=== PATIENT | male | born 1975 | race Caucasian/White ===

== ENCOUNTER 2016-11-27 15:07 | Emergency (ER) | payer OTHER, BC ==
[2016-11-27 15:28] VITALS: BP 119/79
--- NOTE | 2016-11-27 16:02 | UC ---
Ear Complaint HPI - HPI Summary HPI Summary: C/O loss of hearing left ear since yesterday. Ringing in the ear. - History of Current Complaint Chief Complaint: UCEar Stated Complaint: EAR COMPLAINT Time Seen by Provider: 11/27/16 15:54 Hx Obtained From: Patient Onset/Duration: Sudden Onset - yesterday afternoon, Still Present Severity Initially: Mild Severity Currently: Moderate Associated Signs/Symptoms: Positive: Hearing Loss, URI Symptoms. Negative: Trauma to Ear, Swelling @ Related History: Seasonal Allergies - Allergies/Home Medications Allergies/Adverse Reactions: Allergies Allergy/AdvReac Type Severity Reaction Status Date / Time ENVIRONMENTAL/SEASONAL Allergy SNEEZE, Uncoded 11/27/16 15:28 ITCHY WATERY EYES PMH/Surg Hx/FS Hx/Imm Hx Cancer History: Other Other Cancer History: non-hodgkins lymphoma - Surgical History Surgical History: Yes Surgery Procedure, Year, and Place: RT clavicle reduction, [facility] [place]. RT tibial surgery/RODDING SCREWS, [facility] 2008. mediport- REMOVED 2012. biopsies and exploratory surgerys PELVIS/STERNUM AND SPINAL TAP, [facility]. right bicep/ tendon surgery. TIBIAL BIOPSIES, [facility]. VASECTOMY, OFFICE. SETON TUBE PLACEMENT, [place]. RIGHT BICEP REPAIR 2016 - Family History Known Family History: Positive: Cardiac Disease, Hypertension Negative: Diabetes - Social History Occupation: Employed Full-time Lives: With Family Alcohol Use: None Substance Use Type: None Smoking Status (MU): Never Smoked Tobacco Have You Smoked in the Last Year: No - Immunization History Most Recent Influenza Vaccination: November 2014 Review of Systems Constitutional: Chills ENT: Nasal Discharge Is Patient Immunocompromised?: No All Other Systems Reviewed And Are Negative: Yes Physical Exam Triage Information Reviewed: Yes Appearance: Well-Appearing, No Pain Distress, Well-Nourished Vital Signs: Initial Vital Signs Temp 97.9 F 11/27/16 15:24 Pulse 80 11/27/16 15:24 Resp 16 11/27/16 15:24 BP 119/79 11/27/16 15:24 Pulse Ox 98 11/27/16 15:24 Vital Signs Reviewed: Yes ENT: Positive: Nasal congestion - with allergic changes, TMs normal Neck exam: Normal Respiratory Exam: Normal Cardiovascular Exam: Normal Musculoskeletal Exam: Normal Neurological Exam: Normal Psychological Exam: Normal Skin Exam: Normal Ear Complaint Course/Dx - Differential Dx/Diagnosis Differential Diagnosis/HQI/PQRI: Cerumen Impaction, Otitis Externa, Otitis Media Provider Diagnoses: Allergic rhinitis. Left eustachian tube dysfunction Discharge - Discharge Plan Condition: Stable Disposition: HOME Patient Education Materials: Allergic Rhinitis (ED) Additional Instructions: You have eustachian tube dysfunction which is causing the ear issues. NEILMED SINUS RINSE: CHECK OUT AT [facility] Saline nasal wash helps with mucous, allergies and congestion. It can be used up to twice a day or only as needed. Use lukewarm tap water. It does not have to be sterilized or distilled water. Do 1/3 on each side and snort out of both nostrils. Repeat the process with 1/6 of the bottle on each side with snorting in between to finish the solution in the bottle Do the rinse 30 minutes after Afrin and 45 minutes before cortisone nasal spray. Only use the afrin once a day for 3-4 days until you get the ear to "pop " easily. NASAL SPRAYS AND DROPS: Afrin in the PUMP/ MIST bottle. Tilt your head down and look at the floor while doing a strong sniff with the spray. Decongestant nasal sprays and drops often give dramatic relief from congestion. They are often recommended for patients with sinus infection to assist with sinus drainage. Persons with high blood pressure should consult the doctor before using these nasal sprays. Afrin and Emmett-Synephrine are common [id number] preparations. They should not be used for more than five days, as "rebound" congestion can occur - - the congestion flares as the drug wears off. A way of dealing with this rebound congestion problem is to medicate only one nostril each time, allowing the other nostril to recover from the medicine' s effects. When you no longer need the drug during the day, spray only one nostril each night. This helps you sleep well without severe rebound congestion. Call the doctor if you develop severe headache, palpitations, or chest pain.
== END 2016-11-27 16:15 | disposition home or self-care (01) ==
LOC: UCCORT 15:07
DX: J30.9 Allergic rhinitis, unspecified (principal); H69.92 Unspecified Eustachian tube disorder, left ear; Z85.72 Personal history of non-Hodgkin lymphomas
CPT/HCPCS: 99211; G0463

== ENCOUNTER 2017-04-28 13:29 | Emergency (ER) | payer OTHER, BC ==
[2017-04-28 15:03] VITALS: BP 148/71
--- NOTE | 2017-04-28 15:29 | UC ---
FLU HPI - HPI Summary HPI Summary: Pt c/o sudden onset of cough, chill, fever and generalized body aches X 1 day. - History of Current Complaint Chief Complaint: UCRespiratory Stated Complaint: FLU SYMPTOMS Time Seen by Provider: 04/28/17 15:01 Hx Obtained From: Patient Onset/Duration: Sudden Onset, Lasting Days, Still Present Severity Currently: Moderate Severity Initially: Moderate Pain Intensity: 5 Associated Signs & Symptoms: Positive: Fever, Myalgia Related Hx: Possible Flu/Infectious Exposure - Risk Factors Influenza Risk Factors: Negative - Allergy/Home Medications Allergies/Adverse Reactions: Allergies Allergy/AdvReac Type Severity Reaction Status Date / Time ENVIRONMENTAL/SEASONAL Allergy SNEEZE, Uncoded 04/28/17 14:57 ITCHY WATERY EYES PMH/Surg Hx/FS Hx/Imm Hx Previously Healthy: Yes - Surgical History Surgical History: Yes Surgery Procedure, Year, and Place: [place] [facility] [place] surgery/RODDING SCREWS, [facility] 2008. mediport- REMOVED 2012. biopsies and exploratory surgerys PELVIS/STERNUM AND SPINAL TAP, [facility]. right bicep/ tendon surgery. TIBIAL BIOPSIES, [facility]. VASECTOMY, OFFICE. SETON TUBE PLACEMENT, [place]. RIGHT BICEP REPAIR 2016 - Family History Known Family History: Positive: Cardiac Disease, Hypertension Negative: Diabetes - Social History Occupation: Employed Full-time Lives: With Family Alcohol Use: Rare Substance Use Type: None Smoking Status (MU): Never Smoked Tobacco Have You Smoked in the Last Year: No - Immunization History Most Recent Influenza Vaccination: November 2014 Review of Systems Constitutional: Fever, Chills, Fatigue Skin: Negative Eyes: Negative ENT: Negative Respiratory: Cough Cardiovascular: Negative Gastrointestinal: Negative Genitourinary: Negative Motor: Negative Neurovascular: Negative Musculoskeletal: Myalgia Neurological: Negative Psychological: Negative Is Patient Immunocompromised?: No All Other Systems Reviewed And Are Negative: Yes Physical Exam Triage Information Reviewed: Yes Appearance: Ill-Appearing Vital Signs: Initial Vital Signs Temp 99.7 F 04/28/17 14:57 Pulse 106 04/28/17 14:57 Resp 16 04/28/17 14:57 BP 148/71 04/28/17 14:57 Pulse Ox 97 04/28/17 14:57 Vital Signs Reviewed: Yes Eye Exam: Normal ENT Exam: Other ENT: Positive: Nasal congestion Dental Exam: Normal Neck exam: Normal Respiratory Exam: Normal Cardiovascular Exam: Normal Musculoskeletal Exam: Normal Neurological Exam: Normal Psychological Exam: Normal Skin Exam: Normal Diagnostics - Laboratory Diagnostic Studies Completed/Ordered: Rapid flu: positive Flu B Flu Course/Dx - Differential Dx/Diagnosis Differential Diagnosis/HQI/PQRI: Bronchitis, Influenza, Upper Respiratory Infection Provider Diagnoses: Influenza B Discharge - Discharge Plan Condition: Stable Disposition: HOME Prescriptions: Benzonatate CAP* [Tessalon 100 MG CAP*] 100 mg PO Q8H PRN #30 cap PRN Reason: Cough Oseltamivir CAP* [Tamiflu CAP*] 75 mg PO Q12H #10 cap Patient Education Materials: Influenza (ED) Forms: *Work Release Referrals: Minh Caraballo MD [Primary Care Provider] -
== END 2017-04-28 15:40 | disposition home or self-care (01) ==
LOC: UCCORT 13:29
DX: J10.1 Influenza due to other identified influenza virus with other respiratory manifestations (principal)
CPT/HCPCS: 87502; 99212; G0463

== ENCOUNTER 2018-03-31 14:37 | Emergency (ER) | payer OTHER, BC ==
--- OUTSIDE RECORDS SUMMARY | 2018-03-31 16:07 | XMS REPORT | Continuity of Care Document ---
:1975 External Reference #:[id number] Author Name Edith Bhatti, SYSTEMS SPEC Address [address] [facility] [place] [address] Care Team Providers Name Role Phone Minh Caraballo MD Care Team Information Research/Program Director Unavailable Minh Caraballo MD Primary Care Physician Unavailable Payers Type Date Identification Numbers Payment Provider Subscriber Effective: Policy Number: [id number] [facility] Shoaib Castillo 2012 Group Number: [id number] [id number] Group Name: CONSUELO Briones [id number] PayID: [id number] Effective: 2011 Policy Number: [id number] / Of [place] Aye Gandhi PayID: [id number] [address] [address] [place] [address] Advance Directives Description No Information Available Problems Description No Information Family History Description No Information Available Social History Type Date Description Comments Sex Unknown Tobacco Use Start: Unknown Nonsmoker Tobacco Use Start: Unknown nonsmoker Allergies, Adverse Reactions, Alerts Date Description Reaction Status Severity Comments 05/03/2011 NKDA Active 05/23/2000 Nka Inactive Medications Medication Date Status Form Strength Qnty SIG Indications Ordering Provider Benzonatate 03/21 Active Capsules 200mg 30caps take one J11.89 Edith Holland. /2019 by mouth Davy, 3 times SYSTEM[employer] SPE[employer] daily as needed for cough Acetaminophen-C 03/21 Active Tablets 300-30mg 20tabs take one J11.89 Edith C. odeine # by mouth Davy, every 6 SYSTEM[employer] hours as needed for cough. may take 2 as one dose at bedtime. Guaifenesin/Pse 03/21 Active Tablets 60-600mg 30tabs take one J11.89 Edith HollandRolando udoephedrine /2018 ER 12HR by mouth Davy, Hydrochloride twice SYSTEM[employer] daily as needed for head congesti on Hydrocodone-Mj 06/29 Active Tablets 5-325mg 42tabs 1 by M54.5 Eden taminophen /2017 mouth Jaspreet, every SHOE PACKER 4-6h as needed pain Flonase 11/29 Active Suspensio 50mcg/Act 1units 2 sprays Minh Khan /2016 n in each Breiman, nostril M.D. daily Zyrtec 11/27 Active Tablets 10mg 1 PO qd /2007 [facility] Atorvastatin 05/06 Active Tablets 10mg 90tabs Take 1 Minh Khan Calcium Tablet Breiman, By Mouth M.D. AT Bedtime Methylprednisol 06/29 Hx TBPK 4mg 21units take as M54.5 Eden directed Jaspreet, - SHOE PACKER 03/21 Orphenadrine 06/29 Hx Tablets 100mg 30tabs 1 po bid M54.5 Eden Citrate ER /2017 ER 12HR prn for Jaspreet, - spasm SHOE PACKER 03/21 Paxil 01/05 Hx Tablets 10mg 30tabs 1 by Minh Khan /2015 mouth Breiman, - every M.D. Guaifenesin-Cod 08/16 Hx Solution 100-10mg/ 4Oz use 1-2 Claudia betzaida /2015 5ML teaspoon [facility], - every 4 Afnp-C / hour needed for cough Ambien CR 01/09 Hx Tablets 6.25mg 30tabs Minh Khan ER Breiman, - M.D. 08/16 Levaquin 10/30 Hx Tablets 500mg 10tabs 1 po qd 786.2 Eden /2014 for 10 Jaspreet, - days SHOE PACKER 01/09 Tussionex 10/30 Hx Liquid ER 10-8mg/5M 120cc 1 786.2 Eden Pennkinetic /2014 L teaspoon Jaspreet, Extended - every 12 SHOE PACKER Release 01/09 hours needed cough Cephalexin 03/19 Hx Tablets 500mg 21tabs 1 by 782.1 mouth Darrius SYSTEM[employer] SPE[employer] - three 03/26 times a day x 7 days Lotrisone 03/19 Hx Cream 1-0.05% 45gm apply to 782.1 affected PREETI Rizo - area 03/26 twice day x 7 days Flonase 03/12 Hx Suspensio 50mcg/Act 1units 2 sprays n in each [facility] 10/28 daily Of Levaquin 01/02 Hx Tablets 500mg 10tabs 1 po qd Bharat Vitale for 10 M.D. - days 03/11 Amoxicillin/Pot 12/27 Hx Tablets 875-125mg 20tabs 1 po bid 461.9 Eden assium x 10 Jaspreet, Clavulanate - days SHOE PACKER 03/11 Tessalon Perles 12/27 Hx Capsules 100mg 60caps 1 po q 8 461.9 hours Jaspreet, - SHOE PACKER 03/11 Robitussin ac 12/27 Hx 40Z 1-2 tsp 461.9 po q4hrs Jaspreet, - prn SHOE PACKER 03/11 Tramadol HCL 10/01 Hx Tablets 50mg 50tabs 1 or 2 724.2 po q 4 - PREETI Rizo - 6 hrs 03/11 prn Medrol Dosepak 10/01 Hx Tablets 4mg 1pack use as directed PREETI Rizo - 10/13 Orphenadrine 09/26 Hx Tablets 100mg 30tabs 1 po bid 724.2 Debra Citrate ER /2012 ER 12HR prn for PREETI Rizo - spasm 03/11 Hydrocodone/Mj 09/26 Hx Tablets 5-325mg 50tabs 1 po 4-6 724.2 Debra taminophen /2012 hr prn PREETI Rizo - for 10/01 severe pain Amoxicillin/Pot 03/23 Hx Tablets 875-125mg 20tabs 1 po bid 461.9 Alejandrina assium x 10 Cherry, Clavulanate - days Afnp-C 09/26 Tamiflu 02/28 Hx Capsules 75mg 10caps 1 po bid Minh JRolando /2012 for 5 Colby CaraballoDRolando 03/22 Robitussin ac 08/10 Hx 40Z 1-2 tsp 466.0 Claudia po q4hrs Jono, - prn Afnp-C 08/24 Nasonex 08/10 Hx 50mcg 1units 2 sprays Alejandrina each Cherry - nostril Afnp-C 03/11 qd Ambien 05/07 Hx Tablets 5mg 30tabs 1 po qhs Minh J. prn Colby Caraballo sleep M.DRolando 08/10 Singulair 06/10 Hx Tablets 10mg 30tabs 1 po qd Minh J. Colby Caraballo M.D. 08/10 Tessalon Perles 02/02 Hx Capsules 100mg 60caps 1 po q 8 472.1 Roxane Stanton /2008 hours Colby Car M.D. 05/07 Levaquin 06/10 Hx Tablets 750mg 5tabs 1 qd x 465.9 Zeus Carmichael /2008 5d Montana Mc - 12/24 Medrol Dosepak 06/10 Hx Tablets 4mg 1tabs use as 465.9 Zeus Carmichael /2008 directed Montana Mc - 12/24 Tylenol 3 03/12 Hx 20units 1 q6h 729.5 Cody A. /2007 prn pain Colby Mckinley M.D. 03/17 disp twenty Nasonex 11/01 Hx 50mcg 1units 2 sprays Ramirez JRolando /2005 each Colby Montano nostril RomyDRolando 04/27 qd /2006 Tessalon 03/22 Hx Capsules 200mg 20caps 1 tid Ramirez JRolando /2005 prn Colby Montano Cough M.D. 04/21 Bextra 09/30 Hx 20mg 30units one po Cody A. daily as Colby Mckinley M.D. 10/30 Lamisil 09/11 Hx 250mg 1 PO qd [facility] 03/22 [facility] [place] Tequin 01/01 Hx 400mg 10units 1 PO qd Cody A. Arlen - M.D. 01/11 Tussi-12 01/01 Hx Liquid 100cc 1 tsp Cody A. q12h prn Dartierney, - cough M.D. 01/11 Clarinex 06/18 Hx 5mg 30units 1 qd prn Alejandrina Cherry, - Afnp-C 01/01 Tessalon Pearls 06/14 Hx 100mg 30units 1 PO tid Alejandrina prn Cherry, - Afnp-C 01/01 Robitussin ac 06/14 Hx 4Oz 1-2 TSP PO Q4H Cherry, - prn Afnp-C 06/24 Cough Claritin 09/06 Hx 10mg 30units 1 qd Omer F. Colby Richmond M.D. 06/18 [place] 08/01 Hx 180mg 30units 1 PO qd Minh J. /2001 Colby Caraballo M.D. 09/06 Viscous 05/28 Hx 2% 1Bottle Mix W/ Alejandrina Lidocaine Equl Cherry, - Amts Of Afnp-C 06/11 Liqid Benadryl And Maalox; Swish And Spit Q 4 HRS prn Doxycycline 12/25 Hx 100mg 20units 1 PO bid Sarthak Stanton /2000 Colby Dimas M.D. 01/04 Tessalon Pearls 12/25 Hx 100mg 30units One Q8H Sarthak Stanton prn Wing, - Celine M.D. 01/24 [place] 08/01 Hx 180mg 30units 1 PO qd Minh JRolando /2000 Colby Caraballo M.D. 05/28 Flonase 08/01 Hx Nasal Oneinhalr 2 Sprays Minh Khan /2000 Sray Each Colby Caraballo Nostril Lashay.DRolando 05/28 qd Dymista Hx Suspensio 137-50mcg 1 spray Unknown /0000 n /Act each - nostril 06/28 twice 2018 daily Immunizations CPT Code Status Date Vaccine Lot # [id number] Given 01/07/2017 Influenza Vac, Quadrivalent, [place] [id number] Given Unknown Tetanus And Diptheria Adult Preservative Free >7Yrs [address] Ordered 11/22/2007 DO Not Use Split Influenza Virus Vaccine Vital Signs Date Vital Result Comment 03/21/2018 9:08am BP Systolic 120 mmHg BP Diastolic 70 mmHg Heart Rate 86 /min Body Temperature 98.2 F Respiratory Rate 20 /min O2 % BldC Oximetry 96 % Ra Weight 211.00 lb 06/29/2017 1:30pm BP Systolic 122 mmHg BP Diastolic 84 mmHg Heart Rate 106 /min Body Temperature 98.4 F Height 69 inches 5'9" Weight 204.00 lb BMI (Body Mass Index) 30.1 kg/m2 05/19/2017 10:53am BP Systolic 132 mmHg BP Diastolic 102 mmHg Heart Rate 80 /min Body Temperature 97.7 F Height 69 inches 5'9" Weight 201.00 lb BMI (Body Mass Index) 29.7 kg/m2 Right Visual Acuity Distance 20/20 Left Visual Acuity Distance 20/25 01/06/2016 8:03am BP Systolic 122 mmHg BP Diastolic 74 mmHg Heart Rate 84 /min Body Temperature 98.1 F Respiratory Rate 18 /min Height 68 inches 5'8" Weight 207.00 lb BMI (Body Mass Index) 31.5 kg/m2 08/17/2015 10:49am BP Systolic 102 mmHg BP Diastolic 72 mmHg Heart Rate 100 /min Body Temperature 99.6 F Height 68 inches 5'8" Weight 200.50 lb BMI (Body Mass Index) 30.5 kg/m2 01/09/2015 4:02pm BP Systolic 118 mmHg BP Diastolic 80 mmHg Heart Rate 70 /min Body Temperature 97.6 F Respiratory Rate 18 /min Height 68 inches 5'8" Weight 198.00 lb BMI (Body Mass Index) 30.1 kg/m2 10/30/2014 3:49pm BP Systolic 140 mmHg BP Diastolic 80 mmHg Heart Rate 76 /min Body Temperature 101.1 F Respiratory Rate 20 /min Height 68.25 inches 5'8.25" 10/28/2014 11:42am BP Systolic 110 mmHg BP Diastolic 70 mmHg Heart Rate 92 /min Body Temperature 101.6 F Respiratory Rate 18 /min Height 68.25 inches 5'8.25" Weight 200.00 lb BMI (Body Mass Index) 30.2 kg/m2 03/19/2014 10:27am BP Systolic 110 mmHg BP Diastolic 78 mmHg Heart Rate 80 /min Body Temperature 97.8 F Respiratory Rate 16 /min Height 68.25 inches 5'8.25" Weight 205.25 lb BMI (Body Mass Index) 31.0 kg/m2 03/12/2013 11:10am BP Systolic 104 mmHg BP Diastolic 64 mmHg Heart Rate 84 /min Body Temperature 96.4 F Height 68.25 inches 5'8.25" Weight 205.25 lb BMI (Body Mass Index) 31.0 kg/m2 12/27/2012 11:50am BP Systolic 120 mmHg BP Diastolic 80 mmHg Heart Rate 60 /min Body Temperature 97.1 F Respiratory Rate 16 /min Height 68.25 inches 5'8.25" Weight 203.00 lb BMI (Body Mass Index) 30.6 kg/m2 10/01/2012 2:15pm BP Systolic 126 mmHg BP Diastolic 80 mmHg Heart Rate 120 /min Body Temperature 97.9 F Respiratory Rate 18 /min Height 68.25 inches 5'8.25" Weight 204.00 lb BMI (Body Mass Index) 30.8 kg/m2 09/26/2012 11:16am BP Systolic 122 mmHg BP Diastolic 80 mmHg Heart Rate 96 /min Body Temperature 96.3 F Respiratory Rate 16 /min Height 68.25 inches 5'8.25" Weight 204.00 lb BMI (Body Mass Index) 30.8 kg/m2 03/23/2012 3:46pm BP Systolic 110 mmHg BP Diastolic 68 mmHg Heart Rate 108 /min Body Temperature 96.7 F Height 68.25 inches 5'8.25" Weight 207.50 lb BMI (Body Mass Index) 31.3 kg/m2 05/03/2011 3:11pm BP Systolic 110 mmHg BP Diastolic 70 mmHg Heart Rate 72 /min Respiratory Rate 15 /min Height 68.25 inches 5'8.25" Weight 206.00 lb BMI (Body Mass Index) 31.1 kg/m2 08/10/2010 4:14pm BP Systolic 120 mmHg BP Diastolic 70 mmHg Heart Rate 76 /min Body Temperature 98.3 F Height 68.25 inches 5'8.25" Weight 200.00 lb BMI (Body Mass Index) 30.2 kg/m2 02/02/2009 4:03pm BP Systolic 120 mmHg BP Diastolic 70 mmHg Heart Rate 90 /min Body Temperature 98.3 F O2 % BldC Oximetry 98 % Height 68.25 inches 5'8.25" Weight 200.00 lb BMI (Body Mass Index) 30.2 kg/m2 12/24/2008 10:11am BP Systolic 102 mmHg BP Diastolic 68 mmHg Heart Rate 84 /min Body Temperature 97.3 F Respiratory Rate 16 /min Weight 204.00 lb 06/10/2008 4:06pm BP Systolic 138 mmHg BP Diastolic 78 mmHg Heart Rate 84 /min Body Temperature 97.6 F Weight 203.00 lb 03/26/2008 9:53am BP Systolic 104 mmHg BP Diastolic 82 mmHg Heart Rate 82 /min Weight 206.00 lb 11/28/2007 8:36am BP Systolic 110 mmHg BP Diastolic 80 mmHg Heart Rate 80 /min Height 68.25 inches 5'8.25" Weight 195.00 lb BMI (Body Mass Index) 29.4 kg/m2 03/15/2007 11:10am BP Systolic 122 mmHg BP Diastolic 72 mmHg Heart Rate 76 /min Body Temperature 98.3 F Height 68.25 inches 5'8.25" 03/12/2007 8:47am BP Systolic 102 mmHg BP Diastolic 70 mmHg Heart Rate 76 /min Body Temperature 97.8 F Respiratory Rate 14 /min Height 68.25 inches 5'8.25" Weight 205.00 lb BMI (Body Mass Index) 30.9 kg/m2 04/27/2006 10:53am BP Systolic 110 mmHg BP Diastolic 72 mmHg Body Temperature 76.0 F Height 68.25 inches 5'8.25" Weight 200.00 lb BMI (Body Mass Index) 30.2 kg/m2 Right Visual Acuity Distance 20/25 Left Visual Acuity Distance 20/20 03/15/2006 7:15pm BP Systolic 100 mmHg BP Diastolic 60 mmHg Body Temperature 98.8 F Respiratory Rate 15 /min Height 69 inches 5'9" 02/10/2006 1:21pm BP Systolic 112 mmHg BP Diastolic 80 mmHg Heart Rate 84 /min Body Temperature 97.9 F Height 69 inches 5'9" Weight 199.00 lb BMI (Body Mass Index) 29.4 kg/m2 11/22/2005 1:53pm BP Systolic 114 mmHg BP Diastolic 72 mmHg Heart Rate 84 /min Height 69 inches 5'9" Weight 199.00 lb BMI (Body Mass Index) 29.4 kg/m2 11/01/2005 1:51pm BP Systolic 102 mmHg BP Diastolic 60 mmHg Heart Rate 80 /min Body Temperature 98.0 F Height 69 inches 5'9" Weight 198.00 lb BMI (Body Mass Index) 29.2 kg/m2 03/22/2005 3:02pm BP Systolic 116 mmHg BP Diastolic 76 mmHg Body Temperature 97.0 F Height 69 inches 5'9" Weight 190.00 lb BMI (Body Mass Index) 28.1 kg/m2 10/01/2003 10:43am BP Systolic 102 mmHg BP Diastolic 80 mmHg Heart Rate 56 /min Irregular Height 69 inches 5'9" Weight 184.00 lb BMI (Body Mass Index) 27.2 kg/m2 09/12/2003 9:27am BP Systolic 102 mmHg BP Diastolic 76 mmHg Heart Rate 74 /min Height 69 inches 5'9" Weight 185.00 lb BMI (Body Mass Index) 27.3 kg/m2 08/12/2003 10:05am BP Systolic 118 mmHg BP Diastolic 78 mmHg Heart Rate 72 /min Height 69 inches 5'9" Weight 188.00 lb BMI (Body Mass Index) 27.8 kg/m2 01/01/2003 4:43pm BP Systolic 120 mmHg BP Diastolic 72 mmHg Heart Rate 68 /min Body Temperature 99.3 F Height 69 inches 5'9" Weight 189.00 lb BMI (Body Mass Index) 27.9 kg/m2 06/14/2002 9:33am BP Systolic 136 mmHg BP Diastolic 80 mmHg Heart Rate 80 /min Body Temperature 98.4 F Height 69 inches 5'9" Weight 193.00 lb BMI (Body Mass Index) 28.5 kg/m2 05/28/2001 10:47am BP Systolic 112 mmHg BP Diastolic 68 mmHg Body Temperature 97.8 F Height 69 inches 5'9" Weight 191.00 lb BMI (Body Mass Index) 28.2 kg/m2 01/31/2001 9:08am BP Systolic 110 mmHg BP Diastolic 80 mmHg Heart Rate 78 /min Height 69 inches 5'9" Weight 187.00 lb BMI (Body Mass Index) 27.6 kg/m2 12/25/2000 1:20pm BP Systolic 120 mmHg BP Diastolic 78 mmHg Heart Rate 60 /min Body Temperature 97.6 F Height 69 inches 5'9" Weight 181.00 lb BMI (Body Mass Index) 26.7 kg/m2 08/01/2000 4:22pm BP Systolic 107 mmHg BP Diastolic 74 mmHg Heart Rate 68 /min Height 69 inches 5'9" Weight 190.00 lb BMI (Body Mass Index) 28.1 kg/m2 05/23/2000 9:12am BP Systolic 118 mmHg BP Diastolic 68 mmHg Heart Rate 64 /min Height 69 inches 5'9" Weight 180.00 lb BMI (Body Mass Index) 26.6 kg/m2 Results Test Date Facility Test Result H/L Range Note Laboratory test 12/07/2017 [facility] PSA Diagnostic 0.379 ng/mL N 0-4.0 1 finding Comprehensive 05/09/2017 [facility] ([facility]) Sodium 139 mEq/L 134-149 Metabolic Prof Potassium 4.2 mEq/L 3.6-5.5 Chloride 99 mEq/L 94-112 Carbon Dioxide 24 mEq/L 21-32 Glucose 111 mg/dL High 70-105 BUN 12 mg/dL 6-26 Creatinine 0.9 mg/dL 0.6-1.4 BUN/Creat Ratio 13.3 CALC 8.0-36.0 Calcium 9.5 mg/dL 8.6-10.2 Total Protein 7.0 g/dL 6.4-8.3 Albumin 4.6 g/dL 3.8-5.5 Globulin 2.4 g/dL 2.0-4.8 A/G Ratio 1.9 CALC 0.6-2.3 Alk. Phosphatase 61 U/L 22-95 Alt (SGPT) 41 U/L High 7-35 Ast (Sgot) 22 U/L 5-34 Total Bilirubin 0.5 mg/dL 0.2-1.3 GFR Non- >60 ml/min/1.73m^ >=60 GFR >60 ml/min/1.73m^ >=60 Lipid Profile 05/09/2017 [facility] ([facility]) Cholesterol 151 mg/dL 120- 200 Triglycerides 108 mg/dL 30-200 HDL Cholesterol 38 mg/dL 30-70 LDL (Calculated) 91 CALC 0-129 VLDL Cholesterol 22 mg/dL 0-50 HDL Risk Factor 4.0 CALC 0.0-4.4 CBC Electronic [facility] 05/09/2017 [facility] ([facility]) WBC 5.5 x10^3/UL 4.0- 10.0 RBC 4.50 x10^6/UL 3.93-6.00 HGB 14.7 g/dL 12.0-17.0 HCT 42 % 35-50 MCV 93.3 fL 80.0-95.0 MCH 32.7 pg High 25.6-32.2 MCHC 35.0 g/dL 32.2-36.0 RDW-CV 12.1 % 11.6-14.4 PLT 194 x10^3/UL 163-400 MPV 10.2 fL 9.4-12.4 Mellissa# 2.84 x10^3/UL 1.56-6.13 Lymph# 1.77 x10^3/UL 1.18-3.74 [place]# 0.70 x10^3/UL 0.24-0.82 Eos # 0.2 x10^3/UL 0.0-0.5 Baso # 0.03 x10^3/UL 0.01-0.08 Mellissa% 51.8 % 34.0-70.0 Lymph % 32.2 % 20.0-52.0 [place]% 12.8 % High 5.0-12.0 Eos% 2.7 % 0.7-7.0 Baso% 0.5 % 0.1-1.2 Rapid Influenza A & B 04/28/2017 [facility] Influenza A Molecular NEGATIVE Negative 2 Molecular Influenza B Molecular POSITIVE Abnormal Negative Complete Blood Count 12/30/2015 [facility] Espinosa ([facility]) WBC 4.8 x10^3/UL 3.6-9.6 RBC 4.44 x10^6/UL 3.90-5.70 HGB 14.6 g/dL 12.1-17.2 HCT 42 % 36-50 MCV 95.0 fL 82.2-97.4 MCH 32.9 pg 27.6-33.3 MCHC 34.6 g/dL 33.0-35.5 RDW 13.5 % 11.6-13.7 PLT 171 x10^3/UL 150-400 MPV 6.7 fL Low 7.4-10.4 Gran # 2.8 x10^3/UL 1.5-7.2 Lymph# 1.7 x10^3/UL 0.7-4.9 [place]# 0.3 x10^3/UL 0.1-0.9 Gran % 56.4 % 42.2-75.2 Lymph % 36.7 % 20.5-51.1 [place]% 6.9 % 1.7-9.3 Comprehensive Metabolic 12/30/2015 [facility] Francisca ([facility]) Sodium 140 mEq/L 134-149 Prof Potassium 4.2 mEq/L 3.6-5.5 Chloride 100 mEq/L 94-112 Carbon Dioxide 23 mEq/L 21-32 Glucose 114 mg/dL High 70-105 3 BUN 13 mg/dL 6-26 Creatinine 0.9 mg/dL 0.6-1.4 BUN/Creat Ratio 14.4 CALC 8.0-36.0 Calcium 9.1 mg/dL 8.6-10.2 Total Protein 6.5 g/dL 6.4-8.3 Albumin 4.3 g/dL 3.8-5.5 Globulin 2.2 g/dL 2.0-4.8 A/G Ratio 2.0 CALC 0.6-2.3 Alk. Phosphatase 55 U/L 22-95 Alt (SGPT) 31 U/L 7-35 Ast (Sgot) 22 U/L 5-34 Total Bilirubin 0.5 mg/dL 0.2-1.3 GFR Non- >60 ml/min/1.73m^ >=60 GFR >60 ml/min/1.73m^ >=60 Lipid Profile 12/30/2015 Vikash Francisca (a) Cholesterol 160 mg/dL 120- 200 Triglycerides 114 mg/dL 30-200 HDL Cholesterol 41 mg/dL 30-70 LDL (Calculated) 96 CALC 0-129 VLDL Cholesterol 23 mg/dL 0-50 HDL Risk Factor 3.9 CALC 0.0-4.4 Comprehensive Metabolic 12/30/2014 [facility] Francisca ([facility]) Sodium 143 mEq/L 134-149 Prof Potassium 4.4 mEq/L 3.6-5.5 Chloride 104 mEq/L 94-112 Carbon Dioxide 21 mEq/L 21-32 Glucose 105 mg/dL 70-105 BUN 11 mg/dL 6-26 Creatinine 0.9 mg/dL 0.6-1.4 BUN/Creat Ratio 12.2 CALC 8.0-36.0 Calcium 9.8 mg/dL 8.6-10.2 Total Protein 7.0 g/dL 6.4-8.3 Albumin 4.5 g/dL 3.8-5.5 Globulin 2.5 g/dL 2.0-4.8 A/G Ratio 1.8 CALC 0.6-2.3 Alk. Phosphatase 57 U/L 22-95 Alt (SGPT) 38 U/L High 7-35 4 Ast (Sgot) 29 U/L 5-34 Total Bilirubin 0.5 mg/dL 0.2-1.3 GFR Non- >60 ml/min/1.73m^ >=60 GFR >60 ml/min/1.73m^ >=60 Lipid Profile 12/30/2014 Vikash Espinosa (a) Cholesterol 154 mg/dL 120- 200 Triglycerides 104 mg/dL 30-200 HDL Cholesterol 42 mg/dL 30-70 LDL (Calculated) 91 CALC 0-129 VLDL Cholesterol 21 mg/dL 0-50 HDL Risk Factor 3.7 CALC 0.0-4.4 Complete Blood Count 12/30/2014 Vikash Espinosa (a) WBC 4.9 x10^3/UL 3.6-9.6 RBC 4.48 x10^6/UL 3.90-5.70 HGB 14.6 g/dL 12.1-17.2 HCT 44 % 36-50 MCV 97.0 fL 82.2-97.4 MCH 32.7 pg 27.6-33.3 MCHC 33.6 g/dL 33.0-35.5 RDW 13.9 % High 11.6-13.7 PLT 172 x10^3/UL 150-400 MPV 7.6 fL 7.4-10.4 Gran # 2.8 x10^3/UL 1.5-7.2 Lymph# 1.8 x10^3/UL 0.7-4.9 [place]# 0.3 x10^3/UL 0.1-0.9 Gran % 54.6 % 42.2-75.2 Lymph % 37.9 % 20.5-51.1 [place]% 7.5 % 1.7-9.3 Laboratory test 10/28/2014 Vikash Espinosa (a) TSH 0.85 mIU/L 0.50- 6.00 finding Laboratory test 10/28/2014 [facility] Monospot NEGATIVE finding (607)- - ([facility]) Comprehensive 10/28/2014 Vikash Espinosa (a) Sodium 135 mEq/L 134-149 Metabolic Prof Potassium 3.7 mEq/L 3.6-5.5 Chloride 98 mEq/L 94-112 Carbon Dioxide 25 mEq/L 21-32 Glucose 120 mg/dL High 70-105 5 BUN 11 mg/dL 6-26 Creatinine 1.0 mg/dL 0.6-1.4 BUN/Creat Ratio 11.0 CALC 8.0-36.0 Calcium 9.1 mg/dL 8.6-10.2 Total Protein 7.5 g/dL 6.4-8.3 Albumin 4.6 g/dL 3.8-5.5 Globulin 2.9 g/dL 2.0-4.8 A/G Ratio 1.6 CALC 0.6-2.3 Alk. Phosphatase 66 U/L 22-95 Alt (SGPT) 21 U/L 7-35 Ast (Sgot) 20 U/L 5-34 Total Bilirubin 0.8 mg/dL 0.2-1.3 GFR Non- >60 ml/min/1.73m^ >=60 GFR >60 ml/min/1.73m^ >=60 Complete Blood Count 10/28/2014 [facility] ([facility]) WBC 7.7 x10^3/UL 3.6-9.6 RBC 4.48 x10^6/UL 3.90-5.70 HGB 14.9 g/dL 12.1-17.2 HCT 44 % 36-50 MCV 97.0 fL 82.2-97.4 MCH 33.3 pg 27.6-33.3 MCHC 34.1 g/dL 33.0-35.5 RDW 13.2 % 11.6-13.7 PLT 156 x10^3/UL 150-400 MPV 7.5 fL 7.4-10.4 Gran # 6.5 x10^3/UL 1.5-7.2 Lymph# 0.9 x10^3/UL 0.7-4.9 [place]# 0.3 x10^3/UL 0.1-0.9 Gran % 83.3 % High 42.2-75.2 Lymph % 12.4 % Low 20.5-51.1 [place]% 4.3 % 1.7-9.3 Laboratory test 10/28/2014 [facility] C-Reactive 28.9 mg/L High 0.0-4.9 6 finding [address] [facility] Protein, [place] [address] (607)- - Lyme AB/Western 10/28/2014 [facility] Lyme IgG/IgM Ab <0.91 ISR 0.00-0.90 7 Blot Reflex [address] [place] [address] (607)- - Lyme Disease Ab, Quant, IgM <0.80 index 0.00-0.79 8 Ua - Micro ([facility]) 03/12/2013 [facility] Appearance CLEAR (607)- - Color YELLOW Glucose NEG Bilirubin NEG Ketones NEG SP Grav 1.010 Blood TRACE-INTACT # PH 5.5 Protein NEG Urobil 0.2 Nitrite NEG Leukocytes ([facility]) NEG Hyaline - /Lpf Granular - /Lpf WBC ([facility]) 0-1 # RBC 0-1 # Mucus - /Lpf Epith - /Lpf Bacteria - /Hpf Amorphous - /Lpf Crystals, Fluid ([facility]) - Z#Comments - Lipid Profile 03/05/2013 [facility] ([facility]) Cholesterol 142 mg/dL 120- 200 HDL 34 mg/dL 30-70 Triglycerides 79 mg/dL 30-200 HDL Risk Factor 4.2 CALC 0.0-4.4 LDL (Calculated) 93 CALC 0-129 VLDL (Calculated) 16 mg/dL 0-50 CBC Electronic ([facility]) 03/05/2013 [facility] WBC 4.1 3.6-9.6 (607)- - RBC 4.31 3.90-5.70 Hemoglobin ([facility]) 13.9 g/dL 12.1 - 17.2 Hematocrit (a/[facility]/CTX) 41.7 % 36.1 - 50.3 Platelets 196 10^3/ul 150-400 Lymph% 34.0 % 17.0-48.0 Mixed% 4.9 Neutrophils % 61.1 Mean Corpuscular Vol 97 82.2-97.4 Mean Corpuscular Hemoglobin 32.4 27.6-33.3 Mean Corpuscular Hemo Concen 33.4 32.0-36.0 RDW 12.1 11.6-13.7 Mean Platelet Volume 7.9 6.5-11.0 Comprehensive Metabolic 03/05/2013 [facility] ([facility]) Albumin 4.4 g/dL 3.8-5.5 Prof Alk. Phos. 67 U/L 22-95 Alt (SGPT) 39 U/L 10-40 Ast (Sgot) 26 U/L 5-34 BUN 13 mg/dL 6-26 Calcium 8.7 mg/dL 8.6-10.2 Chloride 101 mEq/L 94-112 Creatinine 1.0 mg/dL 0.6-1.4 Carbon Dioxide 24 mEq/L 21-32 Glucose 105 mg/dL 70-105 Sodium 140 mEq/L 134-149 Total Bilirubin 0.3 mg/dL 0.2-1.3 Total Protein 6.7 g/dL 6.3-8.1 Potassium 4.1 mEq/L 3.6-5.5 Globulin 2.3 g/dL 2.0-4.8 A/G Ratio 1.9 Calc 0.6-2.3 BUN/Creat Ratio 12.8 Calc 8.0-36.0 Throat-Beta Strept 06/11/2012 [facility] Throat Beta Strep (SEE NOTE) 9 Culture Ua - Non Micro ([facility]) 05/03/2011 [facility] Appearance CLEAR (607)- - Color YELLOW Glucose NEG Bilirubin NEG Ketones NEG SP Grav 1.010 Blood NEG PH 6.5 Protein NEG Urobil 0.2 Nitrite NEG Leukocytes ([facility]) NEG CBC Electronic ([facility]) 04/25/2011 [facility] WBC 4.5 3.6-9.6 (607)- - RBC 4.58 3.90-5.70 Hemoglobin (a/[facility]/CTX) 14.9 g/dL 12.1 - 17.2 Hematocrit ([facility]/CTX) 44.5 % 36.1 - 50.3 Platelets 176 10^3/ul 150-400 Lymph% 30.1 20.5-51.1 Mixed% 4.5 Neutrophils % 65.4 Mean Corpuscular Vol 97 82.2-97.4 Mean Corpuscular Hemoglobin 32.6 27.6-33.3 Mean Corpuscular Hemo Concen 33.6 32.0-36.0 RDW 12.2 11.6-13.7 Mean Platelet Volume 7.5 6.5-11.0 Lipid Profile 04/25/2011 [facility] ([facility]) Cholesterol 180 mg/dL 120- 200 HDL 41 mg/dL 30-70 Triglycerides 147 mg/dL 30-200 HDL Risk Factor 4.4 CALC High 0.0-4.0 LDL (Calculated) 110 CALC 0-129 VLDL (Calculated) 29 mg/dL 0-50 Comprehensive Metabolic 04/25/2011 [facility] ([facility]) Albumin 5.0 g/dL 3.8-5.5 Prof Alk. Phos. 73 U/L 22-95 Alt (SGPT) 41 U/L High 10-40 10 Ast (Sgot) 25 U/L 5-34 BUN 15 mg/dL 6-26 Calcium 9.6 mg/dL 8.6-10.2 Chloride 100 mEq/L 94-112 Creatinine 1.0 mg/dL 0.6-1.4 Carbon Dioxide 26 mEq/L 21-32 Glucose 114 mg/dL High 70-105 11 Sodium 135 mEq/L 134-149 Total Bilirubin 0.6 mg/dL 0.2-1.3 Total Protein 7.4 g/dL 6.3-8.1 Potassium 4.2 mEq/L 3.6-5.5 Globulin 2.3 g/dL 2.0-4.8 A/G Ratio 2.2 Calc 0.6-2.2 BUN/Creat Ratio 14.9 Calc 8.0-36.0 Comp Metabolic Panel 05/19/2010 [facility] Sodium 137 mmol/L 135-145 Potassium 4.1 mmol/L 3.5-5.0 Chloride 106 mmol/L 101-111 Co2 (Carbon Dioxide) 26.0 mmol/L 22-32 Anion Gap 5.0 mmol/L 2-11 12 Glucose 98 mg/dL 70-100 BUN 10 mg/dL 6-24 Creatinine 0.80 mg/dL 0.50-1.40 One Over Creatinine 1.20 BUN/Creatinine Ratio 12.5 8-20 Calcium 9.1 mg/dL 8.1-9.9 Total Protein 6.2 GM/DL 6.2-8.1 Albumin 4.4 GM/DL 3.6-5.4 Globulin 1.8 GM/DL Low 2-4 Albumin/Globulin Ratio 2.4 1-3 Bilirubin Total 0.9 mg/dL 0.4-1.5 13 Alkaline Phosphatase 65 U/L 39-117 Alt (SGPT) 52 U/L 17-63 Ast (Sgot) 32 U/L 12-42 eGFR Non- 110.7 > 60 eGFR 142.3 > 60 14 Lipid Profile (Trig/Chol/HDL) 05/19/2010 [facility] Triglyceride 70 mg/dL 40- 200 Cholesterol 145 mg/dL Less Than 200 15 High Density Lipoprotein 39 mg/dL Low 40-60 16 Cholesterol/HDL Ratio 3.72 AVERAGE 1-4.97 Low Density Lipoprotein 92 mg/dL Less Than 100 17 Lipid Profile 04/13/2009 [facility] ([facility]) Cholesterol 134 mg/dL 120- 200 HDL 36 mg/dL 30-70 Triglycerides 54 mg/dL 30-200 HDL Risk Factor 3.7 CALC Low 4.2-7.0 LDL (Calculated) 87 CALC 0-129 VLDL (Calculated) 11 mg/dL 0-50 Hepatic 04/13/2009 [facility] ([facility]) Albumin 4.5 g/dL 3.8-5.5 Alk. Phos. 68 U/L 22-95 Alt (SGPT) 63 U/L High 10-40 Ast (Sgot) 38 U/L High 5-34 Total Bilirubin 0.3 mg/dL 0.2-1.3 Total Protein 6.9 g/dL 6.3-8.1 Direct Bilirubin 0.2 mg/dL 0.0-0.6 Globulin 2.4 g/dL 2.0-4.8 A/G Ratio 1.8 Calc 0.6-2.2 Indirect Bilirubin 0.14 0.10-1.00 Laboratory test finding 02/02/2009 [facility] Medicine Quickstrep negative Negative (607)- - Throat - Beta Strep Fma negative @48hrs Comprehensive Metabolic 12/24/2008 [facility] ([facility]) Albumin 4.8 g/dL 3.8-5.5 18 Prof Alk. Phos. 75 U/L 22-95 Alt (SGPT) 53 U/L High 10-40 19 Ast (Sgot) 32 U/L 5-34 BUN 14 mg/dL 6-26 Calcium 9.8 mg/dL 8.6-10.2 Chloride 99 mEq/L 94-112 Creatinine 1.1 mg/dL 0.6-1.4 Carbon Dioxide 25 mEq/L 21-32 Glucose 102 mg/dL 70-105 Sodium 139 mEq/L 134-149 Total Bilirubin 0.8 mg/dL 0.2-1.3 Total Protein 7.3 g/dL 6.3-8.1 Potassium 4.2 mEq/L 3.6-5.5 Globulin 2.6 g/dL 2.0-4.8 A/G Ratio 1.9 Calc 0.6-2.2 BUN/Creat Ratio 12.7 Calc 8.0-36.0 Laboratory test finding 12/24/2008 [facility] ([facility]) TSH 1.11 mIU/L 0.50-6.00 Creatine Kinase 129 U/L 38-174 Lipid Profile 12/24/2008 [facility] ([facility]) Cholesterol 176 mg/dL 120- 200 HDL 41 mg/dL 30-70 Triglycerides 178 mg/dL 30-200 HDL Risk Factor 4.3 CALC 4.2-7.0 LDL (Calculated) 100 CALC 0-129 VLDL (Calculated) 36 mg/dL 0-50 Laboratory test finding 06/10/2008 [facility] Throat - Beta Strep negative (607)- - Fma Quickstrep NEGATIVE Negative Lipid Profile 11/28/2007 [facility] ([facility]) Cholesterol 187 mg/dL 120- 200 HDL 38 mg/dL 30-70 Triglycerides 153 mg/dL 30-200 HDL Risk Factor 5.0 CALC 4.2-7.0 LDL (Calculated) 118 CALC 0-129 VLDL (Calculated) 31 mg/dL 0-50 Comprehensive Metabolic 11/28/2007 [facility] ([facility]) Albumin 4.6 g/dL 3.8-5.5 Prof Alk. Phos. 74 U/L 22-95 Alt (SGPT) 40 U/L 10-40 Ast (Sgot) 26 U/L 5-34 BUN 17 mg/dL 6-26 Calcium 9.5 mg/dL 8.6-10.2 Chloride 99 mEq/L 94-112 Creatinine 1.0 mg/dL 0.6-1.4 Carbon Dioxide 24 mEq/L 21-32 Glucose 103 mg/dL 70-105 Sodium 137 mEq/L 134-149 Total Bilirubin 0.5 mg/dL 0.2-1.3 Total Protein 7.6 g/dL 6.3-8.1 Potassium 3.9 mEq/L 3.6-5.5 Globulin 3.0 g/dL 2.0-4.8 A/G Ratio 1.5 Calc 0.6-2.2 BUN/Creat Ratio 16.6 Calc 8.0-36.0 Laboratory test 05/22/2007 [facility] ([facility]) Misc CBC;BMP;BLD CULT See Image finding Report Laboratory test 03/15/2007 Family Medicine Sed Rate 5 MM finding (607)- - (Fma/CMC/C entrex) Complete Blood 03/15/2007 [facility] ([facility]) WBC 5.3 x10\\S\\3/uL 3.6- 9.6 Count Gran# 3.4 x10\\S\\3/uL 1.5-7.2 Gran% 63.5 % 42.2-75.2 HCT 45 % 36-50 HGB 15.4 g/dL 12.1-17.2 Lymph# 1.7 x10\\S\\3/uL 0.7-4.9 Lymph% 31.9 % 20.5-51.1 MCH 33.2 pg 27.6-33.3 MCV 97.7 fL High 82.2-97.4 MCHC 34.0 g/dL 33.0-35.5 Mo# 0.2 x10\\S\\3/uL 0.1-0.9 Mo% 4.6 % 1.7-9.3 MPV 8.6 fL 7.4-10.4 PLT 206 x10\\S\\3/uL 150-400 RBC 4.64 x10\\S\\6/uL 3.90-5.70 RDW 12.1 % 11.6-13.7 Protein Electro, 03/15/2007 [facility] Protein, Total 7.5 g/dL 6.4-8.[address] [place] [id number] [phone] Protein, Total 7.5 g/dL 6.4-8.2 Albumin 4.7 3.2-5.6 Alpha 1 Globulin, Serum 0.2 g/dL 0.1-0.4 Alpha 2 Globulin, Serum 0.8 g/dL 0.4-1.2 Beta Globulin, Serum 0.8 g/dL 0.6-1.3 Gamma Globulin 1.0 g/dL 0.5-1.6 Globulin,Total 2.8 g/dL 2.0-4.5 A/G Ratio 1.7 0.7-2.0 Interpretation, Serum * 21 Lipid Profile 08/07/2006 [facility] (a) Cholesterol 165 mg/dL 120- 200 22 HDL 33 mg/dL 30-70 Triglycerides 135 mg/dL 30-200 HDL Risk Factor 5.0 CALC 4.2-7.0 LDL (Calculated) 105 CALC 0-129 VLDL (Calculated) 27 mg/dL 0-50 Hepatic 08/07/2006 [facility] (a) Albumin 4.2 g/dL 3.8-5.5 Alk. Phos. 84 U/L 22-95 Alt (SGPT) 104 U/L High 10-40 Ast (Sgot) 44 U/L High 5-34 Total Bilirubin 0.8 mg/dL 0.2-1.3 Total Protein 7.0 g/dL 6.3-8.1 Direct Bilirubin 0.3 mg/dL 0.0-0.6 Globulin 2.8 g/dL 2.0-4.8 A/G Ratio 1.5 Calc 0.6-2.2 Indirect Bilirubin 0.52 0.10-1.00 Ua - Non Micro (Fma) 04/27/2006 [facility] Appearance CLEAR (607)- - Color LT YELLOW Glucose NEG Bilirubin NEG Ketones NEG SP Grav 1.010 Blood NEG PH 6.0 Protein NEG Urobil 0.2 Nitrite NEG Leukocytes ([facility]ma/CMC/[facility]) NEG Comp Metabolic-ALL 04/27/2006 [facility] Glucose, Serum 91 mg/dL 70 -105 Lab Compani (607)- - (Fma/CMC/CTX) BUN ([facility]ma/CMC/[facility]) 14 mg/dL 6-26 Creatinine (Fma/CMC/CTX) 0.9 mg/dL 0.6-1.4 Sodium 133 Low 134-149 23 Potassium 3.7 3.6-5.5 Chloride 96 mEq/L 94-112 Co2 27 21-32 Albumin (Fma/CMCC/[facility]) 4.3 3.8-5.5 Total Protein 7.3 g/dL 6.3-8.1 Calcium (Fma/CMC/[facility]) 9.4 mg/dL 8.6-10.2 Alkaline Phosphatase (F/C/CTX) 65 U/L 30-110 Ast (Sgot) ([facility]ma/CMC/[facility]) 26 U/mL 5-34 Alt (SGPT) (CMC/[facility]/FF) 41 High 10-40 24 Bilirubin, Total 0.3 mg/dL 0.2-1.3 #GFR, Calculated (CTX) - Lipid 04/27/2006 [facility] Cholesterol 235 mg/dL High 120-200 Panel-ALL Lab (607)- - ([facility]ma/CMC/[facility]) Companies HDL-Chol 32 mg/dL 30-85 Triglyceride 134 mg/dL 30-200 LDL/HDL Chol. Ratio (F/C/CTX) - Chol./HDL Ratio (Fma/CMC/CTX) - Low 30-85 LDL, Calculated ([facility]) 176 mg/dL High 0-129 HDL Risk Factor (Fma) 7.4 CALC High 4.2-7.0 CBC Electronic-ALL Lab [facility] 04/27/2006 [facility] WBC 5.3 3.6- 9.6 (607)- - RBC 4.52 3.90-5.70 Hemoglobin (Fma/CMC/CTX) 14.6 g/dL 12.1 - 17.2 Hematocrit (Fma/CMC/CTX) 43 % 36.1 - 50.3 Mean Corpuscular Vol 94.3 82.2-97.4 Mean Corpuscular Hemaglobin 32.2 27.6-33.3 Mean Corpuscular Hemo Concen 34.1 33.0-36.0 RDW 12.4 11.6-13.7 Platelets 209 10^3/ul 150-400 Mean Platelet Volume 8.9 7.4-10.4 Neutrophils 60.2 Lymphocytes 32.6 % 20.5 - 51.1 Monocytes 7.2 % 1.7-9.3 Eosinophil - Basophil% - Abs Neutrophils - Abs Lymphs - Abs Mononuclear - Abs Eosinophils - Abs Basophils - Liver Function ([facility]) 10/31/2003 [facility] Total Protein 7.4 GM/DL 6.2-8.1 Albumin (Fma/CMCC/[facility]) 4.5 3.6-5.4 Globulin 2.9 2-4 A/G Ratio (A/G Ratio) 1.6 1-3 Total Bilirubin 0.6 mg/dL 0.1-1.0 Bilirubin, Direct <0.1 mg/dL Low 0.1-0.5 Bilirubin, Indirect UNABLE TO CALCULATE mg/dL 0.1-0.75 Alkaline Phosphatase (F/C/CTX) 63 U/L 39-117 Alt (SGPT) ([facility]) 45 17-63 Ast (Sgot) ([facility]) 25 12-42 Liver Function ([facility]) 09/01/2003 [facility] Total Protein 7.8 GM/DL 6.2-8.1 Albumin ([facility]) 4.4 3.6-5.4 Globulin 3.4 2-4 A/G Ratio (A/G Ratio) 1.3 1-3 Total Bilirubin 0.7 mg/dL 0.4-1.5 Bilirubin, Direct <0.1 mg/dL Low 0.1-0.5 Bilirubin, Indirect NOT DONE mg/dL 0.1-0.75 Alkaline Phosphatase (F/C/CTX) 68 U/L 39-117 Alt (SGPT) ([facility]) 32 17-63 Ast (Sgot) ([facility]) 23 12-42 Laboratory test 06/14/2002 [facility] Medicine Throat Culture NEGATIVE finding (607)- - CBC With Diff ([facility]) 12/25/2000 [facility] WBC 7.6 3.6-9.6 (607)- - Lymphocytes 30.8 % 20.5 - 51.1 Monocytes 3.8 % 1.7-9.3 Granulocytes 65.4 % 42.2 - 75.2 Lymphocytes 2.3 10^3/uL 0.7 - 4.9 Monocytes 0.3 10^3/uL 0.1 - 0.9 Granulocytes 5.0 10^3/uL 1.5 - 7.2 RBC 4.85 3.90-5.70 Hemoglobin 15.1 g/dL 12.1 - 17.2 Hematocrit 46.2 % 36.1 - 50.3 Mean Corpuscular Vol 95.2 82.2-97.4 Mean Corpuscular Hemaglobin 31.0 27.6-33.3 Mean Corpuscular Hemo Concen 32.6 Low 33.0-34.8 RDW 12.2 11.6-13.7 Platelets 247 10^3/ul 150-400 Mean Platelet Volume 7.5 7.4-10.4 1 Serum levels of PSA measured using the Miryam Mike DXI Hybritech immunoassay should not be interpreted as absolute evidence of the presence or absence of disease. The PSA value should be used in conjunction with other pertinent clinical diagnostic procedures. A PSA value in the range of 0.1 to 0.6 ng/ml is indeterminate if being used as an indicator of recurrent or residual disease. The values obtained with different assay methods or kits cannot be used interchangeably. 2 Veneer Measurer: [id number] 3 RESULTS VERIFIED BY REPEAT ANALYSIS 4 RESULTS VERIFIED BY REPEAT ANALYSIS 5 NON-FASTING 6 1SST 7 Negative <0.91 Equivocal 0.91 - 1.09 Positive >1.09 8 Negative <0.80 Equivocal 0.80 - 1.19 Positive >1.19 IgM levels may peak at 3-6 weeks post infection, then gradually decline. 9 RUN DATE: 06/14/12 [facility] LAB LIVE PAGE 1 RUN TIME: [address] [place] [id number] Specimen Inquiry Name: SHOAIB CASTILLO : [address]: Napoleon Aguilar MD Acct: [id number] Unit: [id number] AGE: 36 Location: [facility] Re06/11/12 SEX: M Status: DEP ER SPEC: [id number] TEDDY: 06/11[birth year]12[birth year][address] [facility] [address]: Napoleon Aguilar MD REQ: [id number] RECD: 06/12/12 STATUS: JESSY DEAN DR: VANNESSA Caraballo MD _ SOURCE: THROAT SPDESC: ORDERED: Throat Beta Str Procedure Result Verified Site Throat Beta Strep Culture Final 06/14/12- 075 ML Negative For Group A Beta Streptococcus END OF REPORT * ML=Testing performed at Main Lab DEPARTMENT OF PATHOLOGY, [address] [place] [address] Sarthak Brown M.D. Director [facility] Permit #[id number] 10 result delfin'd 11 result delfin'd 12 Anion gap measurement may be of limited value in the presence of any alkalosis, especially in a combined acid base disorder. . 13 A metabolite of Naproxen, O-desmethylnaproxen, has been shown to interfere with the [place] method for measuring total bilirubin. Samples from patients who have taken Naproxen have shown spurious elevation in total bilirubin levels. 14 Because ethnic data is not always readily available, this report includes an eGFR for both -Americans and non- Americans. The National Kidney Disease Education Program (NKDEP) does not endorse the use of the MDRD equation for patients that are not between the ages of 18 and 70, are , have extremes of body size, muscle mass, or nutritional status, or are non- or non-. According to the National Kidney Foundation, irrespective of diagnosis, the stage of the disease is based on the level of kidney function: Stage Description GFR(mL/min/1.73 m(2)) 1 Kidney damage with normal or decreased GFR 90 2 Kidney damage with mild decrease in GFR 60-89 3 Moderate decrease in GFR 30-59 4 Severe decrease in GFR 15-29 5 Kidney failure <15 (or dialysis) 15 CHOLESTEROL INTERPRETATION: Desirable: Less than 200 MG/DL Borderline-High Risk: 200-239 MG/DL High-Risk: 240 MG/DL and over 16 HDL INTERPRETATION: Undesirable: High Risk: Less than 40 MG/DL Desirable: Low Risk: Greater than 60 MG/DL 17 LDL INTERPRETATION: Low Risk Optimal Level: LDL Less than 100 MG/DL Near or Above Optimal: LDL 100-129 MG/DL Borderline High Risk: LDL 130-159 MG/DL High Risk: LDL 160-189 MG/DL Very High Risk: LDL Greater than 189 MG/DL 18 FASTING 19 RESULT RECHECKED 20 FASTING; 1 SST 21 Normal serum protein electrophoresis pattern. Reviewed by Dr. Montilla, Pathologist. 22 FASTING 23 RESULT VERIFIED BY REPEAT ANALYSIS 24 RESULT VERIFIED BY REPEAT ANALYSIS Procedures Date Code Description Status 05/19/2017 [facility] 01/06/2016 02994 [facility] SHQ Completed 01/09/2015 42436 CPHL SHQ Completed 03/12/2013 11380 HL SHQ Completed 05/03/2011 63932 Electrocardiogram Complete Completed Encounters Type Date Location Provider Dx Diagnosis Office Visit 06/29/2017 [facility] Office ELDER Loyola M54.5 Low back pain 1:30p Office Visit 08/17/2015 [facility] Office Claudia De La Cruz, J06.9 Acute upper 10:45a Afnp-C respiratory infection, unspecified R05 Cough Office Visit 10/30/2014 3:30p [facility] Office Eden Vogel, 786.2 Cough 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 780.60 Fever, Unspecified Office Visit 03/19/2014 10:15a [facility] Debra Rizo, 782.1 Rash & Other SYSTEMS SPEC Nonspec Skin Eruption Office Visit 12/27/2012 11:30a [facility] Eden Vogel, 461.9 Sinusitis Acute SHOE PACKER Unspec 466.0 Bronchitis Acute Office Visit 10/01/2012 2:00p Main Office Debra Rizo, 724.2 Lumbago SYSTEMS SPEC Office Visit 09/26/2012 11:15a [facility] Debra Rizo, 724.2 Lumbago SYSTEMS SPEC Office Visit 03/23/2012 3:45p [facility] Alejandrina 461.9 Sinusitis Acute Cherry, Unspec Afnp-C Office Visit 05/03/2011 3:20p [facility] Minh Khan V70.0 Examination [place] Caraballo General Medical Routine AT [facility] 202.85 Lymphoma Other Inguinal Region & Lower Limb Lymph Nodes 272.4 Hyperlipidemia Other Unspec Office Visit 08/10/2010 4:15p [facility] Claudia 465.9 URI Upper [place], Afnp-C Respiratory Infections Acute Unspec Sites 466.0 Bronchitis Acute 477.9 Rhinitis Allergic Cause Unspec Office Visit 05/07/2010 1:20p Main Office Minh Khan 272.4 Hyperlipidemia Keo Caraballo M.D. Unspec Office Visit 02/02/2009 3:30p Jose Manuel Stanton 472.1 Pharyngitis Chronic Office [place] Car Office Visit 12/24/2008 10:10a Main Office Minh Khan 272.4 Hyperlipidemia Keo Caraballo M.D. Unspec 202.85 Lymphoma Other Inguinal Region & Lower Limb Lymph Nodes 333.1 Tremor Essential & Other Forms Office Visit 06/10/2008 3:20p Main Office Zeus Carmichael 465.9 URAnneliese Mc M.D. Respiratory Infections Acute Unspec Sites Office Visit 03/26/2008 9:40a Main Office Minh Kahn 202.85 Lymphoma Keo Caraballo M.D. Inguinal Region & Lower Limb Lymph Nodes Office Visit 11/28/2007 8:20a Main Office Minh Khan 272.4 Hyperlipidemia Keo Caraballo M.D. Unspec 202.85 Lymphoma Other Inguinal Region & Lower Limb Lymph Nodes Office Visit 03/15/2007 11:00a Main Office Minh Khan 729.5 Pain In Limb [place] Caraballo Office Visit 03/12/2007 8:50a [facility] Cody Carmichael 729.5 Pain In Limb [place] Office Visit 04/27/2006 10:20a Main Office Minh Khan V70.0 Examination [place] Caraballo General Medical Routine AT Health Care Facility V17.3 History Family Ischemic Heart Disease V77.91 Screening For Lipoid Disorders Office Visit 03/15/2006 7:15p Main Office Claudia De La Cruz, 465.9 URI Upper Afnp-C Respiratory Infections Acute Unspec Sites Office Visit 02/10/2006 1:10p Main Office Ramirez Montano, 861.00 Injury Heart W/O M.D. Open Wound Into Thorax Unspec Office Visit 11/22/2005 2:10p Main Office Ramirez Montano, 461.9 Sinusitis Acute M.D. Unspec 490 Bronchitis Acute Or Chronic Not Spec Office Visit 11/01/2005 2:00p Main Office Ramirez Khan 477.9 Rhinitis Allergic [place] Montano Cause Unspec Office Visit 03/22/2005 3:00p Main Office Ramirez Khan 465.9 URI Upper [place] Montano Respiratory Infections Acute Unspec Sites Office Visit 10/01/2003 10:30a Jose Manuel Carmichael 719.41 Pain Joint Shoulder Office [place] Office Visit 09/12/2003 9:20a [facility] Minh Khan V70.5 Examination Health Office [place] Caraballo Of Defined Subpopulations Office Visit 08/12/2003 9:45a Jose Manuel Taylor 782.1 Rash & Other Nonspec Office Jono, Skin Eruption Afnp-C 110.9 Dermatophytosis Unspec Site Office Visit 01/01/2003 4:45p Jose Manuel Carmichael 460 Nasopharyngitis Acute Office [place] Office Visit 06/14/2002 9:30a Jose Manuel Tinoco 477.9 Rhinitis Allergic Office Cherry, Cause Unspec Afnp-C 462 Pharyngitis Acute Office Visit 05/28/2001 10:30a [facility] Alejandrina Carey Afnp-C Office Visit 01/31/2001 9:10a Main Office Minh Caraballo M.D. Office Visit 12/25/2000 1:20p [facility] Office Sarthak Dimas M.D. Office Visit 08/01/2000 4:20p [facility] Office Minh Caraballo M.D. Office Visit 05/23/2000 9:20a [facility] Office Minh Caraballo M.D. Plan of Treatment Future Appointment(s):05/15/2018 9:15 am - Minh Caraballo M.D. at [facility][1]05/22/2018 10:20 am - Minh Caraballo M.D. at [facility] [id number]/21/2018 - Edith Chay Bhatti, NPJ11.89 Influenza due to unidentified influenza virus with other manNew Medication:Benzonatate 200 mg - take one by mouth 3 times daily as needed for coughAcetaminophen-Codeine #3 300-30 mg - take one by mouth every 6 hours as needed for cough. may take 2as one dose at bedtime.Guaifenesin/Pseudoephedrine Hydrochloride 60-600 mg - take one by mouth twice daily as needed for head congestionComments:Call or return if you develop new fever, trouble breathing, sudden worsening, or pain in the ears, face, or chest . While the symptoms of upper respiratory infections are uncomfortable and can take a long time to go away, they rarely present significant danger. Use a humidifier at night and drink plenty of fluids during the day. Ibuprofen or tylenol are good for headaches and sore throats. Other cough and cold remedies, such as guaifenesin or phenylephrine, will not help you get better any faster. They can temporarily help with symptoms, but you should only continue to take them if you actually experience some relief within a couple hours of taking a dose. It is normal to cough for 2-3 weeks. You should be re- evaluated at the office if your cough persists longer or if you have a cough with fever,wheezing, or worsening pain.AllComments:1. Patient has been queried about patient's goals/preferences and functional/lifestyle goals at relevant visits. If relevant, describe: Has been discussed, noted above2. Treatment goals as explainedto the patient: see above3. Are there barriers to meeting treatment goals? Yes If Yes, please describe: Barriers include possible insurance limits, disease process, and difficulty with lifestyle changes4. Self -Management goals as described to the patient: Yes, see above As always, we strongly encourage a healthy diet and making physical activity a part of your every day life. If you have questions about how or where to start, please contact the office.
[2018-03-31 16:48] VITALS: BP 134/89
--- NOTE | 2018-03-31 16:49 | UC ---
Throat Pain/Nasal Daniel HPI - HPI Summary HPI Summary: C/O right maxillary sinus pain x 2 weeks, not better with z-yesenia. Finally getting better with amoxicillin. Night sweats are improving. - History of Current Complaint Stated Complaint: LOW GRADE FEVER FOR 2 WEEKS Hx Obtained From: Patient Onset/Duration: Gradual Onset, Lasting Weeks - 2, Still Present - but improving. Severity: Moderate Cough: None Associated Signs & Symptoms: Positive: Sinus Discomfort, Nasal Discharge, Fever Related History: Seasonal Allergies - Allergies/Home Medications Allergies/Adverse Reactions: Allergies Allergy/AdvReac Type Severity Reaction Status Date / Time ENVIRONMENTAL/SEASONAL Allergy SNEEZE, Uncoded 03/31/18 16:49 ITCHY WATERY EYES Home Medications: Home Medications Fluticasone NASAL SPRAY 50MCG* [Flonase NASAL SPRAY 50MCG*] 2 spray BOTH NARES DAILY 03/31/18 [History Confirmed 03/31/18] PMH/Surg Hx/FS Hx/Imm Hx Other Cancer History: [place] lymphoma - Surgical History Surgical History: Yes Surgery Procedure, Year, and Place: RT clavicle reduction, [facility]. RT tibial surgery/RODDING SCREWS, [facility] 2008. mediport- REMOVED 2012. biopsies and exploratory surgerys PELVIS/STERNUM AND SPINAL TAP, [facility]. right bicep/ tendon surgery. TIBIAL BIOPSIES, [facility]. VASECTOMY, OFFICE. [employer] PLACEMENT, [place]. RIGHT BICEP REPAIR 2016 - Family History Known Family History: Positive: Cardiac Disease, Hypertension Negative: Diabetes - Social History Occupation: Employed Full-time Lives: With Family Alcohol Use: Rare Substance Use Type: None Smoking Status (MU): Never Smoked Tobacco Have You Smoked in the Last Year: No - Immunization History Most Recent Influenza Vaccination: November 2014 Review of Systems All Other Systems Reviewed And Are Negative: Yes Constitutional: Positive: Fever, Chills, Fatigue ENT: Positive: Nasal Discharge, Sinus Congestion, Sinus Pain/Tenderness Is Patient Immunocompromised?: No Physical Exam Triage Information Reviewed: Yes Appearance: Well-Nourished, Pain Distress Vital Signs Reviewed: Yes Eyes: Positive: Conjunctiva Clear ENT: Positive: Nasal congestion, Nasal drainage, TMs normal, Sinus tenderness - right maxillary Neck exam: Normal Respiratory: Positive: Lungs clear, Wheezing - expiratory wheeze with coughing. Cardiovascular Exam: Normal Musculoskeletal Exam: Normal Neurological Exam: Normal Psychological Exam: Normal Skin Exam: Normal Throat Pain/Nasal Course/Dx - Differential Dx/Diagnosis Differential Diagnosis/HQI/PQRI: Laryngitis, Sinusitis, URI Provider Diagnosis: Acute maxillary sinusitis, Allergic rhinitis Discharge - Sign-Out/Discharge Documenting (check all that apply): Patient Departure All imaging exams completed and their final reports reviewed: No Studies - Discharge Plan Condition: Stable Disposition: HOME Prescriptions: Montelukast Sodium TAB* [Singulair 10 MG TAB*] 10 mg PO BEDTIME #30 tab predniSONE TAB* [Deltasone 20 MG TAB*] 60 mg PO DAILY #18 tab Patient Education Materials: Sinusitis (ED), Wheezing (ED), Prednisone (By mouth), Montelukast (By mouth) Referrals: Minh Caraballo MD [Primary Care Provider] - Additional Instructions: NEILMED SINUS RINSE: CHECK OUT AT [facility] Saline nasal wash helps with mucous, allergies and congestion. It can be used up to twice a day or only as needed. Use lukewarm tap water. It does not have to be sterilized or distilled water. Do 1/3 on each side and snort out of both nostrils. Repeat the process with 1/6 of the bottle on each side with snorting in between to finish the solution in the bottle - Billing Disposition and Condition Condition: STABLE Disposition: Home
== END 2018-03-31 17:03 | disposition home or self-care (01) ==
LOC: UCCORT 14:37
DX: J01.00 Acute maxillary sinusitis, unspecified (principal); J30.9 Allergic rhinitis, unspecified; Z91.09 Other allergy status, other than to drugs and biological substances
CPT/HCPCS: 99212; G0463

== ENCOUNTER 2019-04-16 11:44 | Emergency (ER) | payer OTHER, BC ==
[2019-04-16 12:37] VITALS: BP 141/92
[2019-04-16] MEDS ORDERED: Albuterol/Ipratropium NEB.SOL* Albuterol 2.5 MG/Ipratropium 0.5 MG 3 ML INH ONE (12:45)
--- NOTE | 2019-04-16 12:45 | UC ---
FLU HPI - HPI Summary HPI Summary: 43-year-old male who discomfort [place] on of last week, 6 days ago. On Monday he started experiencing flulike symptoms with fever, chills, body aches, cough and scratchy throat. - History of Current Complaint Chief Complaint: UCRespiratory Stated Complaint: THROAT COMPLAINT,FEVER,CONGESTION Time Seen by Provider: 04/16/19 12:29 Hx Obtained From: Patient Onset/Duration: Sudden Onset Severity Currently: Moderate Severity Initially: Moderate Pain Intensity: 4 Associated Signs & Symptoms: Positive: Fever, Myalgia, Cough, Sore Throat - Scratchy throat, Nasal Congestion, Headache Related Hx: Possible Flu/Infectious Exposure - Allergy/Home Medications Allergies/Adverse Reactions: Allergies Allergy/AdvReac Type Severity Reaction Status Date / Time bacitracin Allergy Rash Verified 04/16/19 12:29 ENVIRONMENTAL/SEASONAL Allergy SNEEZE, Uncoded 04/16/19 12:28 ITCHY WATERY EYES Home Medications: Home Medications Atorvastatin* [Lipitor 10 MG*] 10 mg PO BEDTIME 04/15/15 [History Confirmed ] Cetirizine* [ZyrTEC 10 MG TAB*] 10 mg PO BEDTIME 04/15/15 [History Confirmed ] Fluticasone NASAL SPRAY 50MCG* [Flonase NASAL SPRAY 50MCG*] 2 spray BOTH NARES DAILY 03/31/18 [History Confirmed 04/16/19] Benzonatate CAP* [Tessalon 100 MG CAP*] 200 mg PO TID PRN #30 cap 04/16/19 [Rx] predniSONE 10 mg TAB [Deltasone 10 MG TAB*] 10 mg PO DAILY 12 Days #30 tab 04/16 [Rx] PMH/Surg Hx/FS Hx/Imm Hx Previously Healthy: Yes - Surgical History Surgical History: Yes Surgery Procedure, Year, and Place: RT clavicle reduction, [facility] [place]. RT tibial surgery/RODDING SCREWS, [facility] 2008. mediport- REMOVED 2012. biopsies and exploratory surgerys PELVIS/STERNUM AND SPINAL TAP, [facility]. right bicep/ tendon surgery. TIBIAL BIOPSIES, [facility]. VASECTOMY, OFFICE. [place] TUBE PLACEMENT, [place]. RIGHT BICEP REPAIR 2016 - Family History Known Family History: Positive: Cardiac Disease, Hypertension Negative: Diabetes - Social History Lives: With Family Alcohol Use: None Substance Use Type: None Smoking Status (MU): Never Smoked Tobacco Have You Smoked in the Last Year: No - Immunization History Most Recent Influenza Vaccination: November 2014 Review of Systems All Other Systems Reviewed And Are Negative: Yes Constitutional: Positive: Fever, Chills ENT: Positive: Sore Throat, Nasal Discharge Respiratory: Positive: Cough - Nonproductive moist cough. Musculoskeletal: Positive: Myalgia Neurological/Mental Status: Positive: Headache Is Patient Immunocompromised?: No Physical Exam Triage Information Reviewed: Yes Appearance: Well-Appearing, No Pain Distress, Well-Nourished Vital Signs: Initial Vital Signs Temp 98.4 F 04/16/19 12:30 Pulse 94 04/16/19 12:30 Resp 16 04/16/19 12:30 BP 141/92 04/16/19 12:30 Pulse Ox 97 04/16/19 12:30 Vital Signs Reviewed: Yes Eyes: Positive: Conjunctiva Clear ENT: Positive: Pharyngeal erythema - Minimal pharyngeal erythema, Nasal drainage - Clear nasal coryza, TMs normal, Uvula midline Neck: Positive: Supple, Nontender, No Lymphadenopathy Respiratory: Positive: Lungs clear, Normal breath sounds, No respiratory distress, No accessory muscle use - Tight moist cough. Cardiovascular: Positive: RRR, No Murmur, Pulses Normal, Brisk Capillary Refill Musculoskeletal Exam: Normal Neurological Exam: Normal Psychological Exam: Normal Skin Exam: Normal Flu Course/Dx - Course Course Of Treatment: Rapid flu test: Negative DuoNeb treatment: The patient had increased aeration throughout all lung boyle and less coughing. He feels much better. I am going to treat him with a tapering course of prednisone, and cough medicine with a definite follow-up with his primary care provider if no improvement in 2 or 3 days. - Differential Dx/Diagnosis Provider Diagnosis: Bronchitis Discharge ED - Sign-Out/Discharge Documenting (check all that apply): Patient Departure All imaging exams completed and their final reports reviewed: No Studies - Discharge Plan Condition: Good Disposition: HOME Prescriptions: Benzonatate CAP* [Tessalon 100 MG CAP*] 200 mg PO TID PRN #30 cap PRN Reason: Cough predniSONE 10 mg TAB [Deltasone 10 MG TAB*] 10 mg PO DAILY 12 Days #30 tab Patient Education Materials: Acute Bronchitis (ED) Referrals: Mnih Caraballo MD [Primary Care Provider] - Additional Instructions: Increase fluids, rest, take the prednisone with food. Follow-up with your primary care provider if no improvement in 2 or 3 days. - Billing Disposition and Condition Condition: GOOD Disposition: Home
[2019-04-16 12:55] LABS: Influenza A Molecular Negative (Negative); Influenza B Molecular Negative (Negative)
== END 2019-04-16 13:31 | disposition home or self-care (01) ==
LOC: UCCORT 11:44
DX: J40 Bronchitis, not specified as acute or chronic (principal); M79.10 Myalgia, unspecified site; R51 Headache; R05 Cough; Z88.1 Allergy status to other antibiotic agents; Z91.09 Other allergy status, other than to drugs and biological substances
CPT/HCPCS: 99212; A9270-GY; G0463